=== PATIENT | female | born 1995 | race Caucasian/White ===

== ENCOUNTER 2018-06-08 20:03 | Emergency (ER) | payer MEDICAID, OTHER ==
[~2018-06-08] VITALS: Ht 162.6 cm; Wt 66.7 kg
[2018-06-08 20:05] VITALS: Ht 162.6 cm; Wt 66.7 kg
[2018-06-08] MEDS ORDERED: SULF1TAB31 PO (20:52)
[2018-06-08] MEDS ORDERED: CEPH-443 PO (20:52)
[2018-06-08] MEDS ORDERED: IBUP-1542 PO (21:21)
[2018-06-08] MEDS ORDERED: IBUPROFEN 600 MG TAB PO ONE (21:30)
[2018-06-08 21:34] VITALS: BP 136/92; PULSE 93; RESP 16
--- NOTE | 2018-06-08 22:25 | ERD ---
ER Documentation Chief Complaint Chief Complaint WOUND CHECK S/P BREAST AUGMENTATION X1WK AGO; REDNESS AND PAIN HPI Patient is a 23-year-old female with no medical problems who presents with breast pain. The patient had breast augmentation surgery done 6 days ago in [place]. She has had pain since the surgery and has had bilateral breast swelling and redness. The left was greater than the right. She had subjective fever at night but did not take her temperature. Upon review of old medical records this is the patient's first visit to the emergency department. ROS All systems reviewed and are negative except as per history of present illness. Medications Home Meds Active Scripts Ibuprofen* (Motrin*) 600 Mg Tab, 600 MG PO Q6H PRN for PAIN AND OR ELEVATED TEMP, #30 TAB Prov:JOSE ANTONIO JUAN MD 06/08/18 Sulfamethoxazole/Trimethoprim* (Bactrim Ds* Tablet) 1 Each Tablet, 1 TAB PO BID, #14 TAB Prov:JOSE ANTONIO JUAN MD 06/08/18 Cephalexin* (Keflex*) 500 Mg Capsule, 500 MG PO QID for 7 Days, CAP Prov:JOSE ANTONIO JUAN MD 06/08/18 PMhx/Soc Medical and Surgical Hx: pt denies Medical Hx History of Surgery: Yes (liposuction) Hx Alcohol Use: No Hx Substance Use: No Hx Tobacco Use: No Smoking Status: Never smoker FmHx Family History: diabetes Physical Exam Vitals Vital Signs Date Temp Pulse Resp B/P (MAP) Pulse Ox O2 O2 Flow FiO2 Time Delivery Rate 06/08/18 98.5 93 16 136/92 98 Room Air 21:34 (107) 06/08/18 98.9 99 18 129/69 96 20:05 (89) Physical Exam Const: No acute distress Head: Atraumatic Eyes: Normal Conjunctiva ENT: Normal External Ears, Nose and Mouth. Neck: Full range of motion. No meningismus. Resp: Clear to auscultation bilaterally Cardio: Regular rate and rhythm, no murmurs Abd: Soft, non tender, non distended. Normal bowel sounds Skin: Recent surgery with swelling to bilateral breasts, left greater than right, mild erythema without abscess formation, bilateral incisions are clean, dry, and intact Back: No midline or flank tenderness Ext: No cyanosis, or edema Neur: Awake and alert Psych: Normal Mood and Affect Results 24 hrs Current Medications Medications Dose Sig/[place] Start Time Status Last (Trade) Ordered Route PRN Stop Time Admin Dose Reason Admin Ibuprofen 600 mg ONCE ONCE 06/08/18 DC 06/08/18 (Motrin) PO 21:30 21:25 06/08/18 21:31 Procedures/MDM Patient is a 23-year-old female who presents with bilateral breast pain and redness. It is possible that she has an early cellulitis and I would treat her with Bactrim and Keflex for 1 week. She will be given ibuprofen for pain and inflammation reduction. There is no obvious sign of abscess at this time and she is afebrile with stable vital signs. I doubt sepsis or necrotizing fasciitis. The patient will need close follow-up with her primary doctor within 24-48 hours for recheck. She can return sooner for any worsening symptoms. Departure Diagnosis: Primary Impression: Post-operative infection Encounter type: initial encounter Postoperative infection type: s uperficial incisional surgical site Qualified Codes: T81.41XA - Infection following a procedure, superficial incisional surgical site, initial encounter Additional Impression: Cellulitis Site of cellulitis: trunk Site of cellulitis of trunk: chest wall Qualified Codes: L03.313 - Cellulitis of chest wall Condition: Fair Patient Instructions: Post Op Wound Check, Infection Referrals: [facility] YOU HAVE RECEIVED A MEDICAL SCREENING EXAM AND THE RESULTS INDICATE THAT YOU DO NOT HAVE A CONDITION THAT REQUIRES URGENT TREATMENT IN THE EMERGENCY DEPARTMENT. FURTHER EVALUATION AND TREATMENT OF YOUR CONDITION CAN WAIT UNTIL YOU ARE SEEN IN YOUR DOCTORS OFFICE WITHIN THE NEXT 1-2 DAYS. IT IS YOUR RESPONSIBILITY TO MAKE AN APPOINTMENT FOR FOLOW-UP CARE. IF YOU HAVE A PRIMARY DOCTOR --you should call your primary doctor and schedule an appointment IF YOU DO NOT HAVE A PRIMARY DOCTOR YOU CAN CALL OUR PHYSICIAN REFERRAL HOTLINE AT IF YOU CAN NOT AFFORD TO SEE A PHYSICIAN YOU CAN CHOSE FROM THE FOLLOWING [facility] [address] [facility] [address] [facility] [facility] [address] [facility] [address] [facility] [address] [facility]. [facility] [address] Additional Instructions: Call your primary care doctor TOMORROW for an appointment during the next 1-2 days.See the doctor sooner or return here if your condition worsens before your appointment time. JOSE ANTONIO JUAN MD Jun 08, 2018 22:25
== END 2018-06-08 21:35 | disposition home or self-care (01) ==
LOC: E/R 20:03
DX: T81.41XA Infection following a procedure, superficial incisional surgical site, initial encounter (principal); L03.313 Cellulitis of chest wall; Y82.9 Unspecified medical devices associated with adverse incidents
CPT/HCPCS: Z7502; Z7610; 99283